=== PATIENT | female | born 1950 | race Caucasian/White ===

== ENCOUNTER 2017-11-10 14:47 | Emergency (ER) | payer MEDICARE, OTHER ==
[~2017-11-10] VITALS: Ht 162.6 cm; Wt 77.1 kg
[~2017-11-10 14:47] MED LIST: DICLOFENAC SODI75 MG PO; MULTIVITAMINS1 EAC7 PO; PROBIOTIC1 EAC1 PO
[2017-11-10] MEDS ORDERED: IBUPROFEN600 MG PO (15:10)
== END 2017-11-10 19:18 | disposition home or self-care (01) ==
LOC: ED 14:47
PROC: 2W3MX1Z Immobilization of Left Lower Extremity using Splint (ICD-10-PCS; principal; 2017-11-10)
DX: S83.92XA Sprain of unspecified site of left knee, initial encounter (principal); X50.9XXA Other and unspecified overexertion or strenuous movements or postures, initial encounter; Z79.899 Other long term (current) drug therapy
CPT/HCPCS: 29505; 73560; 99283